=== PATIENT | female | born 1945 | race Caucasian/White ===

== ENCOUNTER 2021-03-29 17:47 | Inpatient (IN) ==
[2021-03-29] MEDS ORDERED: *HR* HYDROcodone/Acet 5/325 mg TABLET PO PRN (22:23)
[2021-03-29] MEDS ORDERED: Naloxone 0.4 MG/ML INJ IVP PRN (22:23)
[2021-03-29] MEDS ORDERED: *HR* Promethazine 25 MG/ML VIAL IM PRN (22:23)
[2021-03-29] MEDS ORDERED: Melatonin 3 MG TABLET PO PRN (22:23)
[2021-03-29] MEDS ORDERED: *HR* Heparin 5,000 UNIT/ML VIAL IVP PRN ×2 (23:37)
[2021-03-29] MEDS ORDERED: Heparin 25,000 UNIT/250 ML 25,000 UNIT/250 ML IV.SOLN IVC SCH (23:45)
[2021-03-30] MEDS: Acetaminophen 325 MG TABLET PO PRN ×3 (00:18→16:44)
[2021-03-30] MEDS ORDERED: Ipratropium/Albuterol Neb 3 ML IH PRN (01:18)
[2021-03-30 02:36] LABS: Basophils % 0.5 %; Eosinophils # 0.2 K/mcL (0.0-0.6); Eosinophils % 2.4 %; Hemoglobin 8.7 g/dL (11.5-15.4); Immature Granulocytes % 2.8 % (0-4); Lymphocytes # 1.4 K/mcL (0.6-4.6); Lymphocytes % 15.5 %; Mean Corpuscular HGB Conc 32.2 g/dL (31.6-35.5); Mean Corpuscular Hemoglobin 31.1 pg (28.0-33.3); Mean Corpuscular Volume 96.4 fL (83.0-100.0); Mean Platelet Volume 9.8 fL (9.4-12.4); Monocytes # 0.4 K/mcL (0.0-1.3); Monocytes % 4.8 %; Neutrophils # 6.5 K/mcL (1.6-8.9); Platelet Count 188 K/mcL (140-400); Red Cell Distribution Width 13.6 % (11.5-14.5); White Blood Count 8.8 K/mcL (4.3-11.1)
[2021-03-30 02:49] LABS: Heparin anti-factor XA UFH 0.1 IU/mL (0.30-0.70); INR 1.1; Prothrombin Time 12.2 Seconds (9.4-12.1)
[2021-03-30 02:51] LABS: Albumin 3.9 g/dL (3.5-5.7); Albumin/Globulin Ratio 1.3 (1.1-2.2); Bilirubin,Total 0.4 mg/dL (0.3-1.0); Calcium 7.9 mg/dL (8.6-10.3); Magnesium 2.1 mg/dL (1.6-2.6); Potassium 4.7 mEq/L (3.5-5.1); Total Protein 6.9 g/dL (6.4-8.9); Troponin I 0.07 ng/mL (< 0.04)
[2021-03-30] MEDS ORDERED: MethylPREDNISolone 40 MG/ML VIAL IVP SCH (08:00)
[2021-03-30] MEDS ORDERED: 0.9 % Sodium Chloride 250 ML IVC PRN (11:13)
[2021-03-30] MEDS ORDERED: 0.9 % Sodium Chloride 1,000 ML PRIME SCH (11:15)
[2021-03-30] MEDS ORDERED: hydrOXYzine pamoate 25 MG CAPSULE PO PRN (11:53)
[2021-03-30] MEDS: Gabapentin 300 MG CAPSULE PO SCH ×2 (12:35→20:51)
[2021-03-30] MEDS: Furosemide 20 MG TABLET PO SCH (12:35)
[2021-03-30] MEDS: hydrALAZINE 25 MG TABLET PO SCH ×3 (12:35→20:50)
[2021-03-30] MEDS: carBAMazepine 200 MG TABLET PO SCH ×2 (12:35→20:47)
[2021-03-30] MEDS: Isosorbide MONOnitrate (24 HR) 30 MG TAB.ER.24H PO SCH (12:36)
[2021-03-30] MEDS: *HR* Heparin 5,000 UNIT/ML VIAL SQ SCH ×2 (16:02→20:47)
[2021-03-30] MEDS: Ondansetron 4 MG/2 ML VIAL IVP PRN (16:43)
[2021-03-30] MEDS: predniSONE 20 MG TABLET PO SCH (16:43)
[2021-03-30] MEDS: cloNIDine HCL 0.1 MG TABLET PO SCH ×2 (16:44→20:51)
[2021-03-30 18:39] LABS: Hepatitis B Surface Antibody < 3.10 mIU/mL
[2021-03-30 18:50] LABS: Hepatitis B Surface Antigen Nonreactive (Nonreactive)
[2021-03-31 02:01] LABS: Basophils # 0.1 K/mcL (0.0-0.2); Basophils % 0.8 %; Eosinophils % 0.1 %; Hematocrit 26.9 % (35.3-44.9); Hemoglobin 8.6 g/dL (11.5-15.4); Immature Granulocytes % 3.9 % (0-4); Lymphocytes # 0.9 K/mcL (0.6-4.6); Mean Corpuscular Hemoglobin 31.2 pg (28.0-33.3); Mean Corpuscular Volume 97.5 fL (83.0-100.0); Monocytes # 0.2 K/mcL (0.0-1.3); Monocytes % 2.9 %; Neutrophils # 5.7 K/mcL (1.6-8.9); Platelet Count 215 K/mcL (140-400); Red Blood Count 2.76 M/mcL (3.82-4.97); Red Cell Distribution Width 13.7 % (11.5-14.5); Segmented Neutrophils % 79.3 %; White Blood Count 7.2 K/mcL (4.3-11.1)
[2021-03-31] MEDS: Nystatin POWDER 30 GM BOTTLE TP SCH ×4 (02:20→19:49)
[2021-03-31 02:24] LABS: Potassium 4.3 mEq/L (3.5-5.1)
[2021-03-31] MEDS: *HR* Heparin 5,000 UNIT/ML VIAL SQ SCH ×3 (05:23→19:48)
[2021-03-31] MEDS ORDERED: 0.9 % Sodium Chloride 250 ML IVC PRN (07:12)
[2021-03-31] MEDS: carBAMazepine 200 MG TABLET PO SCH ×3 (09:47→19:39)
[2021-03-31] MEDS: Aspirin Enteric Coated 81 MG Tablet PO SCH (09:47)
[2021-03-31] MEDS: Isosorbide MONOnitrate (24 HR) 30 MG TAB.ER.24H PO SCH (09:47)
[2021-03-31] MEDS: predniSONE 20 MG TABLET PO SCH (09:47)
[2021-03-31] MEDS: Furosemide 20 MG TABLET PO SCH (09:47)
[2021-03-31] MEDS: Gabapentin 300 MG CAPSULE PO SCH ×2 (09:48→19:39)
[2021-03-31] MEDS: cloNIDine HCL 0.1 MG TABLET PO SCH ×3 (09:52→19:39)
[2021-03-31] MEDS: hydrALAZINE 25 MG TABLET PO SCH ×3 (09:58→19:39)
[2021-03-31] MEDS: Acetaminophen 325 MG TABLET PO PRN (19:43)
[2021-04-01] MEDS: Ondansetron 4 MG/2 ML VIAL IVP PRN (01:46)
[2021-04-01] MEDS: *HR* Heparin 5,000 UNIT/ML VIAL SQ SCH (05:41)
[2021-04-01 06:49] VITALS: BP 173/78; PULSE 104; TEMP 98.8; O2SAT 93
[2021-04-01] MEDS: Gabapentin 300 MG CAPSULE PO SCH (09:04)
[2021-04-01] MEDS: Isosorbide MONOnitrate (24 HR) 30 MG TAB.ER.24H PO SCH (09:04)
[2021-04-01] MEDS: Aspirin Enteric Coated 81 MG Tablet PO SCH (09:04)
[2021-04-01] MEDS: predniSONE 20 MG TABLET PO SCH (09:04)
[2021-04-01] MEDS: carBAMazepine 200 MG TABLET PO SCH (09:04)
[2021-04-01] MEDS: hydrALAZINE 25 MG TABLET PO SCH (09:05)
[2021-04-01] MEDS: Furosemide 20 MG TABLET PO SCH (09:05)
[2021-04-01] MEDS: cloNIDine HCL 0.1 MG TABLET PO SCH (09:05)
== END 2021-04-01 10:18 | disposition home or self-care (01) | DRG 871 ==
LOC: 2ANU → SUATTDRO 21:28
PROVIDERS: ADMIT Hospitalist; ATTEND Internal Medicine